=== PATIENT | female | born 1995 | race African-American/Black ===

== ENCOUNTER 2017-03-24 15:50 | Emergency (ER) | payer BC, OTHER ==
[~2017-03-24] VITALS: Ht 160 cm; Wt 74.8 kg
[~2017-03-24 15:50] MED LIST: AMOXICILLIN 50500 M1 PO; BENADRYL25 MG PO; DESONIDE 0.05%60 M1 TP; HYDROCERIN CREA1 JAR TOP; IBUPROFEN 600600 M1 PO; MIRALAX255 GM PO; MONONESSA1 EACH; NOHOMEMEDICATIONS; VALTREX1000 MG PO; ZANTAC 150MG T150 M1 PO
[2017-03-24 16:02] VITALS: BP 126/71
[2017-03-24] MEDS ORDERED: NAPROSYN500 MG PO (16:23)
== END 2017-03-24 17:11 | disposition home or self-care (01) ==
LOC: ER 15:50
DX: M79.651 Pain in right thigh (principal)

== ENCOUNTER 2020-07-09 20:34 | Emergency (ER) | payer OTHER ==
[~2020-07-09] VITALS: Ht 160 cm; Wt 73.0 kg
[~2020-07-09 20:34] MED LIST changes: +NAPROSYN500 MG PO
[2020-07-09 20:35] VITALS: BP 158/68
== END 2020-07-09 21:15 | disposition home or self-care (01) ==
LOC: ER 20:34
DX: J02.9 Acute pharyngitis, unspecified (principal); Z20.828 Contact with and (suspected) exposure to other viral communicable diseases; R50.9 Fever, unspecified; R05 Cough; R19.7 Diarrhea, unspecified; R53.83 Other fatigue; R53.1 Weakness

== ENCOUNTER → 2021-04-09 | Outpatient (CLI) | payer OTHER | LOC: ULTRA 11:01 | PROVIDERS: ATTEND Nurse Practitioner | DX: N60.02 Solitary cyst of left breast (principal); N64.4 Mastodynia ==